=== PATIENT | female | born 1980 | race Caucasian/White ===

== ENCOUNTER 2023-01-11 01:58 | Emergency (ER) | payer BC, SELFPAY ==
[2023-01-11 02:00] VITALS: BP 157/92; PULSE 84; RESP 18; TEMP 36.6; O2SAT 100; BMI 34.7
--- NOTE | 2023-01-11 02:24 | [facility].EDGENADL ---
Discharge Plan Disposition Patient Disposition: Home, Self-Care Referrals Follow up/Referrals: Garcia Taveras [Primary Care Provider] - See instructions Activity Restrictions/Add. Instructions Additional Instructions/Restrictions: Please follow-up with your primary care provider. Please return to the emergency department if you develop any new or worsening symptoms or become concerned for your health. Clinical Impressions Clinical Impression: Ear foreign body Qualifiers: Encounter type: initial encounter Laterality: right Qualified Code(s): T16.1XXA - Foreign body in right ear, initial encounter Instructions Patient Instructions: DI for Skin Abscess Discharge ED Provider: Nathan Linares General Adult HPI General Chief complaint: Skin/Abscess/Foreign Body Stated complaint: fly in ear Time Seen by Provider: 01/11/23 02:05 Mode of Arrival: Ambulatory Source of Information: Patient Limitations: No Limitations Description of Symptoms (Recalled from ER Triage Doc. by RN): Patient states a fly flew in right ear. Unable to get fly out but states she can hear it. Patient states looked in ear and saw fly with otoscope. History of Present Illness HPI narrative: Patient reports that she thinks a fly flew into her right ear canal. She reports no pain but reports she sometimes feels a fluttering. Happened shortly prior to arrival. She has a video otoscope at home and visualize the fly. [facility] Disclaimer: The information contained in this section may have been updated after the patient was seen, as this information can be updated by other users. Social History Smoking Status: Never smoker alcohol intake: never current occupational status: other Travel in the last 8 weeks: None ROS Obtained: Yes All systems reviewed & no additional complaints except as documented Physical Exam General General appearance: alert and in no apparent distress Head Head exam: atraumatic and normocephalic Eye Eye exam: Present normal appearance, PERRL and EOMI ENT ENT exam: Present normal oropharynx and other (gnat/mosquito noted in the right external auditory canal. No evidence of trauma to the ear or TM) Neck Neck exam: Present normal inspection and full ROM Chest Chest inspection: Present normal inspection and symmetric chest wall rise; Absent tenderness Respiratory Respiratory exam: Present normal lung sounds bilaterally; Absent respiratory distress Cardiovascular Cardiovascular exam: Present regular rate and normal rhythm Abdominal Exam Abdominal exam: Present soft; Absent distention, tenderness or guarding Extremities Exam Extremities exam: Present normal inspection; Absent edema or joint swelling Back Exam Back exam: Present normal inspection; Absent tenderness Neurological Exam Neurological exam: Present alert and oriented X3; Absent motor sensory deficit Psychiatric Psychiatric exam: Present normal affect and normal mood Skin Skin exam: Present warm, dry and normal color Lymphatic Lymphatic Findings: no adenopathy Medical Decision Making Medical Records Medical records reviewed: Yes I reviewed the patient's medical records. Steve Inquiry Pt receiving controlled substance: No Steve was queried for this patient: No Vital Signs: 01/11/23 02:00 01/11/23 02:25 Temperature 97.9 F 82 F L Temperature Source Oral Pulse Rate 72 Pulse Rate [Right Radial] 84 Respiratory Rate 18 18 Blood Pressure 152/86 H Blood Pressure [Right Arm] 157/92 H Blood Pressure Mean [Right Arm] 113 Blood Pressure Source [Right Arm] Automatic Cuff 02 Sat by Pulse Oximetry 100 Oxygen Delivery Method Room Air Room Air Lab Data Lab results reviewed: Yes I reviewed the patient's lab results. Medical Decision Narrative: 42-year-old female previously healthy presents with insect in the right ear canal. Small gnat/mosquito noted on exam, no evidence of trauma or TM perforation. The ear was copiously irrigated with saline wi
[2023-01-11 02:25] VITALS: BP 152/86; PULSE 72; RESP 18; TEMP 27.7; O2SAT 99
== END 2023-01-11 02:27 | disposition home or self-care (01) ==
LOC: ER 02:07
PROVIDERS: Emergency Provider Emergency Medicine; PCP Family Medicine
DX: T16.1XXA Foreign body in right ear, initial encounter (principal)
CPT/HCPCS: 69200; 99282